=== PATIENT | male | born 1970 | race Caucasian/White ===

== ENCOUNTER 2021-08-05 11:39 | Outpatient (CLI) | payer OTHER, SELFPAY ==
--- NOTE | ~2021-08-05 | XR_ITS ---
XR shoulder RT min 2V 08/05/2021 12:23 Indication: Right shoulder pain Procedure: 4 views right shoulder Comparison: No prior studies for comparison. Findings: No fracture, subluxation or dislocation. There is mild osteoarthritis of the acromioclavicu lar joint. No soft tissue abnormality. The lungs are unremarkable. No foreign bodies. Impression: 1: Mild osteoarthritis of the acromioclavicular joint. Reviewed, dictated and finalized at location B. Impression: 1: Mild osteoarthritis of the acromioclavicular joint.
== END 2021-08-05 11:40 | disposition home or self-care (01) ==
PROVIDERS: PCP Physician Assistant; Visit Provider Physician Assistant
DX: M25.511 Pain in right shoulder (principal); M19.011 Primary osteoarthritis, right shoulder
CPT/HCPCS: 73030

== ENCOUNTER 2021-08-10 10:59 | Outpatient (CLI) | payer OTHER, SELFPAY ==
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
--- NOTE | ~2021-08-10 | XR_ITS ---
EXAMINATION: XR elbow RT min 3V INDICATION: Right elbow pain, initial encounter TECHNIQUE: Four views of the right elbow were obtained. COMPARISON: None available FINDINGS: There is an acute, traumatic, closed, oblique, intra-articular fracture of the radial head. A joint effusion is present. No additional acute osseous findings are present. There is posterior so ft tissue swelling at the elbow. IMPRESSION: 1. Intra-articular fracture of the radial head with joint effusion. Reviewed, dictated and finalized at location D.
== END 2021-08-10 11:00 | disposition home or self-care (01) ==
PROVIDERS: PCP Internal Medicine; Visit Provider Physician Assistant
DX: S59.901A Unspecified injury of right elbow, initial encounter (principal); S49.91XA Unspecified injury of right shoulder and upper arm, initial encounter; S52.121A Displaced fracture of head of right radius, initial encounter for closed fracture; S62.102A Fracture of unspecified carpal bone, left wrist, initial encounter for closed fracture; M79.89 Other specified soft tissue disorders
CPT/HCPCS: 73030; 73080; 73110

== ENCOUNTER → 2022-01-14 13:29 | Outpatient (CLI) | payer OTHER, SELFPAY ==
--- NOTE | ~2022-01-14 | MR_ITS ---
EXAMINATION: MR shoulder RT w con DATE: 01/14/2022 15:00 INDICATION: Right shoulder pain TECHNIQUE: Magnetic resonance imaging (MRI) of the right shoulder was performed following intra-bree cular gadolinium contrast injection and without intravenous contrast. Details of the glenohumeral terence nt injection have been dictated separately. Sequences included axial T2-weighted FS FSE, axial T1-we ighted FS FSE, coronal oblique T1-weighted FS FSE, coronal oblique T2-weighted FSE, sagittal T2-weigh [place] FS FSE, sagittal T1-weighted FSE, and ABER (abduction external rotation) T1-weighted FS FSE. COMPARISON: None. FINDINGS: Coracoacromial arch: The acromion undersurface is curved in morphology (type II). The coracoacromial ligament is normal. M ild acromioclavicular osteoarthritis. Rotator cuff: Mild supraspinatus and infraspinatus tendinopathy. Intra-articular contrast extends into the substanc e of the distal supraspinatus and infraspinatus tendons consistent with articular sided tearing/perfo ration of the tendon although no well-defined measurable tear defect is appreciated. The contrast ext ends along within a intrasubstance ganglion cyst extending 4 cm medially from the insertion of the co njoined portion of the supraspinatus and infraspinatus tendons along a longitudinal split tear within the anteriormost portion of the infraspinatus tendon. Cystic changes are seen at the footplate of th e conjoined portion of the tendon at the junction of the superior and middle facets of the greater tu berosity. No extension of contrast into the subacromial/subdeltoid bursa to suggest a full-thickness tear. The teres minor tendon is normal. Mild subscapularis tendinopathy with similar small amount of contrast extending into the distal 1 cm of the tendon consistent with lenticular sided tear/perforati on without a clearly defined or measurable tear defect. Normal rotator cuff muscle bulk and signal. Biceps tendon, glenoid labrum and glenohumeral cartilage: Moderate tendinopathy and longitudinal split tearing of the long head biceps tendon centered at the j unction of the intra-articular and extra-articular portions of the tendon. Mild partial-thickness car tilage loss with smooth chondral surface along the cephalad third of the glenoid. There is a small te ar with increased intrasubstance signal and enhancement extending peripherally into the 12:00 to 11:0 0 position of the posterior superior glenoid labrum. Bones and other: Mild marrow edema centered on the region of cystic change at the greater tuberosity. Otherwise normal marrow signal. No fracture or pathologic marrow replacing process. No abnormal fluid signal in the s ubacromial/subdeltoid bursa to suggest bursitis. IMPRESSION: 1. Mild supraspinatus and infraspinatus tendinopathy with intrasubstance contrast imbibition within t he distal supraspinatus and infraspinatus tendons consistent with very small or shallow articular asuncion ed tear/perforation but without a clearly defined or measurable tear defect. 2. Mild glenohumeral osteoarthritis with small SLAP tear at the posterior superior glenoid labrum. 3. Moderate tendinopathy and longitudinal split tearing at the junction of the intra-articular and ex tra articular portions of the long head biceps tendon. Reviewed, dictated and finalized at location A. IMPRESSION: 1. Mild supraspinatus and infraspinatus tendinopathy with intrasubstance contra st imbibition within the distal supraspinatus and infraspinatus tendons consist ent with very small or shallow articular sided tear/perforation but without a c learly defined or measurable tear defect. 2. Mild glenohumeral osteoarthritis with small SLAP tear at the posterior super ior glenoid labrum. 3. Moderate tendinopathy and longitudi
--- NOTE | ~2022-01-14 | XR_ITS ---
EXAMINATION: XR fl inj shoulder RT - MR/CT DATE: 01/14/2022 14:45 INDICATION: Right shoulder pain TECHNIQUE: A time-out was performed to verify the patient's name, date of , and procedure to b e performed. The procedure including the risks and benefits was discussed with the patient. Risks dis cussed included bleeding and infection. The patient understood the risks and agreed to proceed. The s kin overlying the right shoulder joint was prepared and draped in usual sterile fashion. The skin and subcutaneous tissues were infiltrated with 1% lidocaine for local anesthesia. A 22 G needle was adv anced under fluoroscopic guidance into the joint. Injectate consisting of 12 mL of 1:200 0.1 mmol/kg Multihance, 1:3 1% lidocaine, and 1:5 Omnipaque 240 was instilled. The needle was removed and the ent ry site was cleaned and dressed. There were no immediate complications. Fluoroscopy exposure time was 0.5 minutes. The DAP for this procedure was 1.796 Gycm2. FINDINGS: Real-time fluoroscopy demonstrates the needle and contrast in the right glenohumeral joint. IMPRESSION: 1. Successful right glenohumeral joint injection of contrast for subsequent MR arthrography. Reviewed, dictated and finalized at location B.
== END ==
PROVIDERS: PCP Orthopaedic Surgery; Visit Provider Orthopaedic Surgery
DX: M25.511 Pain in right shoulder (principal)
CPT/HCPCS: 23350; 73222; 77002; A9577; Q9967